=== PATIENT | male | born 1965 | race Caucasian/White ===

== ENCOUNTER 2023-09-07 19:32 | Emergency (ER) | payer BC, SELFPAY ==
[2023-09-07 19:38] VITALS: BP 162/96
[2023-09-07 19:55] VITALS: BMI 26.2
[2023-09-07] MEDS: AUGMENTIN 875 MG/125 MG 1 TABLET PO (20:56)
--- NOTE | 2023-09-07 21:14 | ED.SKININJ ---
HPI-Injury
General
Chief Complaint: Bite
Source: patient and spouse
Time Seen by Provider: 09/07/23 20:01
Travel History
Have you had any contact with someone who has COVID-19?: No
Do you have any symptoms of coronavirus? Fever > 100 degrees, chills, cough, shortness of breath, sore throat, loss of taste or smell, muscle aches, or headache?: No
History of Present Illness-Injury
Initial Injury comments:
58-year-old male presenting to the emergency department for evaluation after he was bit by his family dog on his right hand middle finger. Patient presented to urgent care who performed an x-ray and states there was no fracture but due to the
laceration was recommended to come to the ER for further evaluation and treatment. Patient reports his tetanus is up-to-date. Dog's vaccinations are up-to-date and no other injuries were sustained.
Past History
Past History
ED Past Medical History: None
ED Past Surgical History: None
Social History
Tobacco: Non-smoker
Alcohol: Occasional
Drug: None
Personal:
Living: with family
Employment: Retired
Review of Systems
Review of Systems
All Other Systems: ROS reviewed and negative except as documented in HPI and ROS
Phy Exam
Physical Exam
Physical Exam:
GENERAL: Alert , in no apparent distress
EYE: conjunctiva clear
Head: Normocephalic atraumatic
NECK: Supple,
ENT: mmm.
LUNGS: no acute respiratory distress
NEUROLOGICAL: Alert and oriented
SKIN: Warm and dry, Right middle finger has jagged laceration along the palmar aspect of the distal phalanx. The nail has a jagged laceration through the mid portion of the nail. No active bleeding.
MUSCULOSKELETAL: well perfused. FROM right middle finger at all levels.
PSYCH: Normal and appropriate interaction.
Scores
Heart Failure Risk
Heart Failure Risk Score: Not Applicable
Heart Score for Chest Pain Patients
STEMI patient?: Not applicable
Withdrawal Assessment of Alcohol
Withdrawal Assessment Completed?: Not applicable
Course
Orders/Labs/Results
Orders:
Orders
09/07/23 20:09
Amoxicillin 875 mg/Clav 125 mg [Augmentin 875 mg/125 mg] 1 tablet PO NOW STA
Vital Signs
Initial and Last Documented VS:
Initial Vital Signs
Temp Pulse Resp BP Pulse Ox
98.2 F 78 18 162/96 100
09/07/23 19:38 09/07/23 19:38 09/07/23 19:38 09/07/23 19:38 09/07/23 19:38
Last Documented Vital Signs
Temp Pulse Resp BP Pulse Ox
98.2 F 78 18 162/96 100
09/07/23 19:38 09/07/23 19:38 09/07/23 19:38 09/07/23 19:38 09/07/23 19:38
Procedures
Laceration Closure
Right Middle Finger:
Status of Wound: clean
Size of Wound in cm: 1.5
Description of Wound Edges: ragged
Preparation: cleaned with saline and cleaned with Betadine
Anesthesia: Digital-Regional
Revision/Debridement: routine- no revision
Type of Closure: single layer closure
Skin Closure Material: 5-0 nylon
Number of sutures: 3
Additional information:
Laceration was loosely approximated given this was a animal bite. Larger areas were approximated to help with wound closure but overall left open due to concern for infection developing
MDM/Problems Addressed
MDM/Problems Addressed:
58-year-old male presenting emergency department for evaluation of right middle finger laceration secondary to dog bite. Patient's tetanus is up-to-date and this is a domestic dog whose rabies vaccination status is up-to-date as well. Laceration
was closed as above however left open/loosely approximated due to concern for infection if closed fully. Provided patient with a dose of Augmentin and a prescription was sent to pharmacy. Advised on return precautions. Stable for discharge home.
*Radiology
Radiology exam reviewed: preliminary read by ED provider (No fracture seen on outpatient [facility])
*Pulse Oximetry
Patient hypoxic: no
*Critical Care Note
Total Time (30-74mins, 75-104mins- exclusive of procedures): Not Applicable
ED Attending Note
-
Portions of this chart may have been created with voice recognition software.� Occasional wrong word or��sound alike� substitutions may have occurred due to the inherent limitations of voice recognition software.
Discharge Plan
Departure
Patient Disposition: Home (Routine Discharge)
Date of Disposition: 09/07/23
Time of Disposition: 21:14
Patient with high blood pressure during this ER visit?: Yes
Discharge Problem:
Dog bite, Laceration of right middle finger w/o foreign body with damage to nail
Instructions: Animal Bites (DC)
Prescriptions:
New
amoxicillin-pot clavulanate 875-125 mg tablet
1 tab PO BID Qty: 19 0RF
Referrals:
Lyndon Zazueta MD [Family Provider] -
Interventions
Interventions:
*Risk Screen - Suicide Last Done: 09/07/23 19:56
*General Assessment Last Done: 09/07/23 19:57
*Neglect/Abuse Screening Last Done: 09/07/23 19:56
ED- Fall Risk Assessment Last Done: 09/07/23 19:56
*ED COVID-19 Vaccine History Last Done: 09/07/23 19:56
*Nursing Disposition Last Done: 09/07/23 21:43
ED-Skin Assessment Last Done: 09/07/23 19:58
Discharge Date and Time
Print Language: [id number]
== END 2023-09-07 21:44 | disposition home or self-care (01) ==
LOC: EMR 19:32
PROVIDERS: EMERGENCY PHYSICIAN Emergency Medicine; FAMILY PHYSICIAN Family Medicine
DX: S61.252A Open bite of right middle finger without damage to nail, initial encounter (principal); W54.0XXA Bitten by dog, initial encounter; Z23 Encounter for immunization
CPT/HCPCS: 99282; 12001